=== PATIENT | male | born 1955 | race Caucasian/White ===

== ENCOUNTER 2017-06-13 10:07 | Emergency (ER) | payer BC ==
[2017-06-13] MEDS ORDERED: MORPHINE SULFATE INJ 4 MG IVP ONE (10:21)
--- NOTE | 2017-06-13 10:24 | DR.TRAUMA ---
HPI - Time Seen Time seen: 10:15 - HPI Comment HPI Comment: Patient fell 10-12 feet from a ladder this morning. There was no LOC or vomitng. He sustained a left parietal/occipital hematoms, bilateral wrist pain. He denies cervical tenderness or thoracolumbar pain. - Complaint/Symptom Chief Complaint Doctors Comments: Statement as stated above. PMH - PMH Past Medical History: Diabetes, Hypertension Past Surgical History: Yes - Family History Family Medical History: Diabetes Mellitus, Cancer, Hypertension - Social History Do you use any recreational Drugs:: No ROS - Review of Systems Eyes: No Symptoms Reported ENTM: No Symptoms Reported Respiratoy: No Symptoms Reported Cardiovascular: No Symptoms Reported Gastrointestinal/Abdominal: No Symptoms Reported Genitourinary: No Symptoms Reported Neurological: No Symptoms Reported Musculoskeletal: No Symptoms Reported Integumentary: Bruises (left occipital area, left wrist) Hematologic/Lymphatic: No Symptoms Reported Endocrine: No Symptoms Reported Psychiatric: No Symptoms Reported All Other Systems: Reviewed and Negative PE - Vitals Vitals: Temperature 97.9 F Pulse Rate [Right Brachial] 69 Pulse Rate 74 Respiratory Rate 18 Blood Pressure [Right Arm] 132/82 Blood Pressure 141/82 O2 Sat by Pulse Oximetry 94 - General Limitations: No Limitations General Appearance: Alert, In No Apparent Distress - Head Head Exam: Normal Inspection, Other (Abrasion of left occipital area) - Eyes Eye exam: PERRL, EOMI, Mydrasis (left) Eyelids: Normal Inspection: Bilateral Pupils: Regular, Round: Bilateral Sclera/Conjunctival: Normal Inspection: Bilateral Posterior Chamber: Deferred: Left - ENT ENT Exam: Normal Exam External Ear Exam: Normal External Inspection TM/Canal Exam: Bilateral Normal Nasal Speculum Exam: Bilateral Normal Mouth Exam: Normal Inspection Teeth Exam: Normal Inspection Throat Exam: Normal Inspection - Neck Neck Exam: Normal Inspection Neck Exam Focused: Normal Inspection - Chest Chest Inspection: Normal Inspection - Respiratory Respiratory Exam: Normal Lung Sounds Bilat Respiratory Exam: Bilateral Clear to Auscultation - Cardiovascular Cardiovascular Exam: Regular Rate, Normal Rhythm - Abdominal Exam Abdominal Exam: Normal Inspection, Normal Bowel Sounds, Soft. negative: Tenderness, Guarding, Rebound Abdominal Tenderness: negative: RUQ, RLQ, LUQ, LLQ, Epigastrium, Suprapubic, Diffuse, Mild, Moderate, Severe, Other - Extremities Extremities Exam: Normal Inspection, Full ROM - Upper Extremities Shoulder Exam: Normal Inspection, Full ROM Arm Exam: Normal Inspection, Full ROM Elbow Exam: Normal Inspection Forearm Exam: Normal Inspection, Full ROM Hand Exam: Normal Inspection Neuromotor Exam: Wrist Extension (decreased ROM of bilateral wrists) Upper Ext. Vascular Exam: Capillary Refill - Lower Extremities Hip/Pelvis Exam: Normal Inspection, Full ROM Upper Leg Exam: Normal Inspection, Full ROM Knee Exam: Normal Inspection Lower Leg Exam: Normal Inspection, Full ROM Ankle Exam: Normal Inspection Foot/Toe Exam: Normal Inspection, Full ROM Neurovascular/Tendon Exam: Normal Capillary Refill Gait Exam: Observed and Normal - Back Back Exam: Normal Inspection. negative: Tenderness, (R) CVA Tenderness, (L) CVA Tenderness - Neurologic Neurological Exam: Alert, Oriented X3, CN II-XII Intact Speech: Fluid Speech Cranial Nerve Exam: EOM Function (II, III, IV, ): Normal, Facial Sensation (V) : Normal, Facial Palsy (VII): Normal Course - Reevaluation 1st: Unchanged - Consultation Called: 11:35 (Dr Douglas accepted the patient for further evaluation and treatment) ROR - XRAY XRAY Interpreted by: Radiologist (CT Brain. Therre is a devin large extracranial subcutaneous hematoma ivolving the left side of the head posteriorly, superiorly and laterally. This measures up to 1.6cm in thickness. It extends approximately 6.8cm in AP dimension and at least 10cm in a cephalocaudal dimension. Impression: There is minimal subacracnoid hemorrhage in the posterior temporal occipital region on the left with a small area felt to be a cerebral contusin just deep to tis. The calvarium appears to be intact. Minimal sinus disease.) - Diagnosis Discharge Problem: Subarachnoid hemorrhage, Extracranial Subcutaneous Hematoma - Discharge Plan Condition: Stable - Follow ups/Referrals Follow ups/Referrals: N[facility],None [Primary Care Provider] - 3 days - Instructions
[2017-06-13 10:34] VITALS: BMI 39.4
--- NOTE | 2017-06-13 11:07 | RAD ---
Examination: Left wrist, three views History: Fell Findings: There is an acute comminuted and impacted and displaced fracture of the distal radial metap hysis. The distal radial fragment is displaced posteriorly by a 1/2 shaft's width. There is posterior impaction, resulting in reversal of the normal volar radiocarpal angle. The carpal complex and dista l ulna appear normal. Impression: Comminuted impacted and deforming fracture distal left radius. Reported By:
--- NOTE | 2017-06-13 11:08 | RAD ---
Examination: Right wrist, three views History fell Findings: There is no evidence for fracture, dislocation or other recent injury. Impression: No acute process demonstrated. Reported By:
--- NOTE | 2017-06-13 11:10 | CT ---
STUDY: CT OF THE CERVICAL SPINE HISTORY: Fall 8-10 feet from roof onto concrete. Altered mental status. Hematoma left head. Technique: Multiple axial images of the cervical spine were obtained from the skull base to the thora cic inlet without administration of IV contrast. Sagittal and coronal reformats were performed and r eviewed. Automated exposure control (AEC) was utilized to adjust the MA and/or kV. Comparison: None. Findings: There is an abnormal lucency through the right occipital condyles. This is vertically orien ricky and best seen on sagittal reconstructed image number 49. This appears to represent a nondisplaced skull base fracture. There is straightening of usual cervical lordosis. There is multilevel degenerative disc disease and degenerative endplate change. There is no evidence of acute fracture or subluxation. Facet alignment is within normal limits bilaterally. The spinous processes are intact. There is no significant prever tebral soft tissue swelling. The lateral masses of C1, and the C1/C2 relationship are normal. The odo ntoid process is intact. IMPRESSION: 1. Suspected nondisplaced skull fracture through the right occipital condyle. 2. No evidence of acute cervical spine fracture. 3. Straightening of the usual cervical lordosis. This finding may be positional or seceondary to mus stephenie spasm. Clinical correlation is recommended. 4. Multilevel cervical spondylosis. Reported By:
--- NOTE | 2017-06-13 11:16 | CT ---
HISTORY: Status post fall from a roof onto concrete. Altered mental status. Study: Computed tomography of the brain: Multiple axial images were obtained throughout the brain. Intravascular contrast was not administered. Radiation dose reduction techniques utilized. Comparison: None Findings: Examination of the brain reveals what appears to be a tiny amount of subarachnoid hemorrhage in a sul cus in the posterior temporal occipital region. There is also a very subtle area of increased densit y in the white matter at this level measuring approximately 18 mm in maximum dimension, possibly a sm all cerebral contusion. Follow-up is recommended. Otherwise I see no abnormal areas of increased or decreased density that suggest acute hemorrhage or infarction. The ventricles are of normal size fo r the patient's age and there is no shift of midline structures or evidence of mass effect. The calv arium appears to be intact. The visualized orbits are normal. There is a polyp/mucous retention cys t present in the floor of the right maxillary sinus. The mastoids are free of fluid. The IAC's are symmetric. Minimal calcification is noted in the carotid siphon. The pituitary fossa is normal. There is a very large extracranial subcutaneous hematoma involving the left side of the head posterio rly, superiorly and laterally. This measures up to 1.6 cm in thickness. It extends approximately 6. 8 cm in AP dimension and at least 10 cm in a cephalocaudal dimension. IMPRESSION: 1. There is minimal subarachnoid hemorrhage in the posterior temporal occipital region on the left w ith a small area felt to be a cerebral contusion just deep to this. This is best seen on image 20 of series 4. 2. The calvarium appears to be intact. 3. Minimal sinus disease. 4. These findings were discussed with Dr. Coello on 06/13/2017 at 11:16 a.m.. Reported By:
[2017-06-13] MEDS ORDERED: NS 1000 ML 1,000 ML ONE (11:17)
[2017-06-13] MEDS ORDERED: ZOFRAN INJ 4 MG VIAL ONE (11:17)
[2017-06-13] MEDS ORDERED: ZOFRAN INJ 4 MG VIAL IVP ONE (11:57)
[2017-06-13] MEDS ORDERED: NS 1000 ML 1,000 ML IV SCH (12:00)
[2017-06-13 12:50] LABS: BILIRUBIN,URINE 1+ (NEGATIVE); BLOOD/HEMOGLOBIN,URINE 1+ (NEGATIVE); GLUCOSE, URINE 3+ (NEGATIVE); KETONES,URINE 2+ (NEGATIVE); LEUKOCYTE ESTERASE ,URINE NEGATIVE (NEGATIVE); NITRITES,URINE NEGATIVE (NEGATIVE); PROTEIN,URINE 3+ (NEGATIVE); UROBILINOGEN,URINE 1+ (NORMAL)
[2017-06-13 13:03] VITALS: BP 167/97
[2017-06-13 13:03] LABS: APPEARANCE,URINE CLOUDY (CLEAR); BACTERIA,URINE TRACE /HPF (NEGATIVE); COLOR,URINE AMBER (YELLOW); RENAL EPITHELIAL CELLS,URINE FEW /HPF (NEGATIVE); SQUAMOUS EPITHELIAL CELL,UR RARE /HPF (NEGATIVE)
[2017-06-13 13:04] LABS: AMORPHOUS SEDIMENT,UR 2+ /HPF (NEGATIVE); HYALINE CASTS, URINE FEW /LPF (NEGATIVE); MUCUS,URINE MANY /HPF (NEGATIVE)
== END 2017-06-13 12:20 | disposition short-term general hospital (02) ==
LOC: ER 10:12
DX: S06.6X0A Traumatic subarachnoid hemorrhage without loss of consciousness, initial encounter (principal); S09.8XXA Other specified injuries of head, initial encounter; S52.502A Unspecified fracture of the lower end of left radius, initial encounter for closed fracture; W11.XXXA Fall on and from ladder, initial encounter; Y92.9 Unspecified place or not applicable
CPT/HCPCS: 51702; 70450; 72125; 73100; 81001; 96365; 96374; 96375; 99283; 99285; A4222; J2405